=== PATIENT | female | born 1975 | race Caucasian/White ===

== ENCOUNTER 2020-12-25 09:28 | Outpatient (CLI) | payer OTHER, SELFPAY ==
--- NOTE | ~2020-12-25 | MM_ITS ---
EXAMINATION: MM scrn rose implant BI w valarie HISTORY: Screening mammogram TECHNIQUE: Craniocaudal and mediolateral oblique 3-D tomosynthesis images with implant displacement a nd synthetic 2-D images were generated. Craniocaudal and mediolateral oblique views of the breasts wi thout implant displacement were obtained using full field digital mammography. CAD analysis was submi tted and interpreted. COMPARISON: 04/09/2019 and 05/02/2017 bilateral implant digital screening mammogram examinations BREAST PARENCHYMAL COMPOSITION: There are scattered areas of fibroglandular density. FINDINGS: Status post bilateral augmentation mammoplasty. There is no evidence of suspicious mass, ca lcification, or architectural distortion to suggest malignancy in either breast. There has been no canas spicious interval change. IMPRESSION: 1. No mammographic evidence of malignancy. 2. Recommend routine screening mammography in one year. BI-RADS Category 1: Negative Reviewed, dictated and finalized at location A.
== END 2020-12-25 09:29 | disposition home or self-care (01) ==
LOC: ANHIMG 09:31
PROVIDERS: Visit Provider Advanced Practice Midwife
DX: Z12.31 Encounter for screening mammogram for malignant neoplasm of breast (principal)
CPT/HCPCS: 77063; 77067

== ENCOUNTER 2021-12-31 16:27 | Outpatient (CLI) | payer OTHER, SELFPAY ==
--- NOTE | ~2021-12-31 | MM_ITS ---
EXAMINATION: MM scrn rose implant BI w valarie HISTORY: Screening mammogram TECHNIQUE: Craniocaudal and mediolateral oblique 3-D tomosynthesis images with implant displacement a nd synthetic 2-D images were generated. Craniocaudal and mediolateral oblique views of the breasts wi thout implant displacement were obtained using full field digital mammography. CAD analysis was submi tted and interpreted. COMPARISON: 12/25/2020, 04/09/2019, 05/02/2017 bilateral implant screening mammogram examinations BREAST PARENCHYMAL COMPOSITION: The breasts are heterogeneously dense, which may obscure small masses . FINDINGS: Status post bilateral augmentation mammoplasty. There is no evidence of suspicious mass, ca lcification, or architectural distortion to suggest malignancy in either breast. There has been no canas spicious interval change. IMPRESSION: 1. No mammographic evidence of malignancy. 2. Recommend routine screening mammography in one year. BI-RADS Category 1: Negative Reviewed, dictated and finalized at location A.
== END 2021-12-31 16:28 | disposition home or self-care (01) ==
DX: Z12.31 Encounter for screening mammogram for malignant neoplasm of breast (principal)
CPT/HCPCS: 77063; 77067

== ENCOUNTER 2022-02-19 12:29 | Outpatient (CLI) | payer OTHER, SELFPAY ==
--- NOTE | 2022-02-19 | ECHO_ITS ---
Patient Info Name: Yessi Sexton Age: 46 years : 1975 Gender: Female Ht: 69 in Wt: 180 lbs BSA: 2.01 m2 HR: 98 bpm BP: 125 / 85 mmHg Heart Rhythm: Atrial Flutter Technical Quality: Fair Exam Date: 02/19/2022 1:02 PM Exam Location: [facility] Patient Status: Outpatient Admit Date: 02/19/2022 Staff Ordering Physician: Carey Mora MD Reading Coach: Mena Wayne RDCS Attending Provider: Carey Mora MD Referring Physician: Morgan JUAREZ; Exam Type: CA echo doppler color flow Study Info Indications R00.2 - Palpitations Complete two-dimensional, color flow and Doppler transthoracic echocardiogram is performed. Summary 1. Complete two-dimensional, color flow and Doppler transthoracic echocardiogram is performed. 2. Left ventricular chamber dimension is normal. 3. Left ventricular systolic function is normal, estimated at 50-55%. 4. Mild biatrial dilation. 5. Trivial aortic and mitral regurgitation. 6. Atrial flutter. Left Ventricle Left ventricular chamber dimension is normal. Left ventricular systolic function is normal, estimated at 50-55%. The left ventricular diastolic function is indeterminate. Right Ventricle Right ventricular chamber dimension is normal. Left Atria Left atrial chamber dimension is mildly enlarged. Right Atria Right atrial chamber dimension is mildly enlarged. Aortic Valve The aortic valve is normal. There is trace aortic valve regurgitation. Pulmonic Valve The pulmonic valve is normal. Mitral Valve The mitral valve has normal leaflets. There is trace mitral valve regurgitation. Tricuspid Valve The tricuspid valve leaflets are normal. Pericardium/Pleural The pericardium appears normal. Aorta The aortic root size at the sinus of Valsalva is normal. Left Ventricular Outflow Tract Name Value Normal LVOT 2D LVOT Diameter 1.9 cm LVOT Doppler LVOT Peak Gradient 3 mmHg LVOT Mean Gradient 2 mmHg LVOT VTI 21 cm LVOT VTI/AV VTI Ratio 0.8 LVOT Stroke Volume 61 ml LVOT CO 4.7 l/min LVOT CI 2.4 l/min/m2 Pulmonic Valve Name Value Normal RVOT Doppler RVOT Peak Gradient 2 mmHg PV Doppler PV Peak Gradient 6 mmHg Mitral Valve Name Value Normal MV Doppler MV Decel [place] 790 cm/s2
[2022-02-19 14:10] LABS: Basophils Percent Auto 0.4 % (0.2-1.2); Eosinophils Absolute Auto 0.1 K/mm3 (0-0.3); Eosinophils Percent Auto 0.7 % (0-4.4); Hematocrit 40.3 % (37.0-47.0); Hemoglobin 13.1 g/dL (12.0-15.0); Immature Granulocyte Absolute 0.02 K/mm3 (0.00-0.031); Immature Granulocyte Percent A 0.3 % (0-0.5); Lymphocytes Percent Auto 25.3 % (18.3-44.2); Mean Corpuscular HGB Conc 32.5 g/dl (32-36); Mean Corpuscular Hemoglobin 29.8 pg (26-34); Mean Corpuscular Volume 91.8 fl (80-100); Mean Platelet Volume 10.5 fl (7.4-10.4); Monocytes Absolute Auto 0.4 K/mm3 (0.1-0.6); Monocytes Percent Auto 5.7 % (2.6-8.5); Neutrophils Absolute Auto 5.1 K/mm3 (1.3-6.7); Neutrophils Percent Auto 67.6 % (45.5-73.1); Platelet Count Result 154 k/mm3 (150-375); Red Blood Count 4.39 M/mm3 (4.2-5.4); Red Cell Distribution Width 13.1 % (11.5-14.5); White Blood Count 7.5 K/mm3 (4.5-10.0)
[2022-02-19 14:21] LABS: Alanine Aminotransferase 16 U/L (6-35); Albumin Level 4.6 g/dL (3.5-5.1); Alkaline Phosphatase 59 U/L (38-126); Anion Gap 5 mmol/L (8-16); Aspartate Amino Transferase 24 U/L (14-36); Bilirubin,Total 0.8 mg/dL (0.2-1.3); Blood Urea Nitrogen 18 mg/dL (7-17); Calcium 8.7 mg/dL (8.4-10.2); Carbon Dioxide 29 mmol/L (22-30); Chloride 105 mmol/L (98-107); Estimated Glomerular Filt Rate > 60; Glucose 96 mg/dL (65-110); Potassium 4.1 mmol/L (3.4-5.0); Sodium 139 mmol/L (137-145)
--- NOTE | 2022-02-23 14:32 | WPDHOLTEREM ---
Holter/Event Monitor Holter/Event Monitor Date of procedure: 02/23/22 Holter/Event Procedure: 48 Hr Holter Monitor Diagnosis: Palpitations Indications: Palpitations Image/Tracing Quality: Good Finding: Patient was monitored for 47 hours 59 minutes. Underlying atrial flutter/fibrillation with heart rate variability between 42 and 160 beats per minute average heart rate 85 beats per minute. Low frequency ventricular ectopy totaling 84 beats. This consisted of 10 couplets and the rest of which were isolated ventricular contractions. Patient events reviewed recorded. Heart racing at 1:55 a.m. correlated to atrial flutter with a heart rate of 65 beats per minute. Two other episodes of heart pounding in mildly speeding up did correlate to atrial flutter with rapid ventricular response No significant pauses Conclusion: Underlying atrial flutter with average heart rate of 85 beats per minute Symptom events correlate atrial flutter and on 2 occasions atrial flutter with rapid ventricular response Low frequency ventricular ectopy
== END 2022-02-19 12:30 | disposition home or self-care (01) ==
PROVIDERS: Visit Provider Internal Medicine
DX: R00.2 Palpitations (principal); Z87.74 Personal history of (corrected) congenital malformations of heart and circulatory system; I48.92 Unspecified atrial flutter
CPT/HCPCS: 36415; 80053; 83735; 84443; 85025; 93225; 93226; 93306

== ENCOUNTER 2023-04-06 07:48 | Outpatient (CLI) | payer OTHER, SELFPAY ==
--- NOTE | ~2023-04-06 | MM_ITS ---
EXAMINATION: MM scrn rose implant BI w valarie HISTORY: Screening mammogram TECHNIQUE: Craniocaudal and mediolateral oblique 3-D tomosynthesis images with implant displacement a nd synthetic 2-D images were generated. Craniocaudal and mediolateral oblique views of the breasts wi thout implant displacement were obtained using full field digital mammography. CAD analysis was submi tted and interpreted. COMPARISON: 12/31/2021, 12/25/2020, 04/09/2019 bilateral implant screening mammogram examinations BREAST PARENCHYMAL COMPOSITION: The breasts are heterogeneously dense, which may obscure small masses . FINDINGS: Status post bilateral augmentation mammoplasty. There is no evidence of suspicious mass, ca lcification, or architectural distortion to suggest malignancy in either breast. There has been no canas spicious interval change. IMPRESSION: 1. No mammographic evidence of malignancy. 2. Recommend routine screening mammography in one year. BI-RADS Category 1: Negative Reviewed, dictated and finalized at location A.
== END 2023-04-06 07:49 | disposition home or self-care (01) ==
LOC: ANHIMG 07:51
PROVIDERS: PCP Internal Medicine; Visit Provider Registered Nurse
DX: Z12.31 Encounter for screening mammogram for malignant neoplasm of breast (principal)
CPT/HCPCS: 77063; 77067

== ENCOUNTER 2024-10-05 02:14 | Day surgery (SDC) | payer OTHER, SELFPAY ==
--- NOTE | 2024-08-29 16:23 | PC.NURSE ---
Report to the Outpatient Waiting Room, entrance under the green pavilion located off [facility], at time ___0600____ on date __[id number] . Planned Procedure Time: 729___.? Time changes happen often and if your time is changed the preop area will call you the afternoon before. - You and your visitor will be asked to self-screen and do not enter if you have any COVID symptoms. Please call surgeon if you need to reschedule. - A mask is optional within the hospital at this time. Patients may have clear liquids (water, carbonated beverages, clear teas, apple juice) until 3 hours prior to surgery with a maximum of 20 ounces. STOP AT 0430. - No food from midnight until time of surgery and no smoking. This includes no chewing gum, candy or mints. -- Take only the following medications with a SIP of water on the morning of surgery: N/A DO NOT STOP ANY OF YOUR OTHER PRESCRIPTION MEDICATIONS PRIOR TO SURGERY EXCEPT THE FOLLOWING Medications to discontinue per physician N/A Please no make-up, nail icelandic, hairspray, perfume, deodorant, or body powder the day of surgery.? No jewelry (including any body piercings) or valuables the day of surgery, leave them at home.? Please take a shower or bath the night before, or the morning of, surgery with an antibacterial soap.? Wear comfortable, loose fitting clothing.? - Jewelry must be removed prior to entering the operating room.? Rings and piercings that are not removed may be cut off. - The hospital will not accept responsibility for valuables.? - Please leave all valuables, including medications, at home the day of surgery. If you are going home after surgery, a licensed food service driver must drive you home.? - NO public transportation without another adult if you receive anesthesia. - We recommend that an adult stay with you for 24 hours following discharge. - We also recommend that you do not drive, make important decision, drink alcoholic beverages, or take any drugs that were not prescribed by your health care provider for at least 24 hours after your discharge time. Hold all vitamins and supplements for 3 days per anesthesiologist. N/A Follow any additional instructions given to you from your surgeon. Telephone instructions given to _PATIENT (TYRONE) and asked if any additional questions and then verbalized understanding. Patient advised to call surgeon office or pre surgery nurse liaison [phone] if any additional questions.
--- NOTE | 2024-09-28 11:27 | PC.NURSE ---
Report to the Outpatient Waiting Room, entrance under the green pavilion located off [facility], at time _0700_ on date _[id number]_. Planned Procedure Time: _0900_.? Time changes happen often and if your time is changed the preop area will call you the afternoon before. - You and your visitor will be asked to self-screen and do not enter if you have any COVID symptoms. Please call surgeon if you need to reschedule. - A mask is optional within the hospital at this time. Patients may have clear liquids (water, carbonated beverages, clear teas, apple juice) until 3 hours prior to surgery with a maximum of 20 ounces. - No food from midnight until time of surgery and no smoking, or chewing tobacco (or any form of nicotine). No chewing gum, candy or mints. Take only the following medications with a SIP of water on the morning of surgery: ____None____ DO NOT STOP ANY OF YOUR OTHER PRESCRIPTION MEDICATIONS PRIOR TO SURGERY EXCEPT THE FOLLOWING Hold all vitamins and supplements for 3 days per anesthesiologist. Medications to discontinue per physician Date to take last dose Please no make-up, nail welsh, hairspray, perfume, deodorant, or body powder the day of surgery.? No jewelry (including any body piercings) or valuables the day of surgery, leave them at home.? Please take a shower or bath the night before, or the morning of, surgery with an antibacterial soap.? Wear comfortable, loose fitting clothing.? - Jewelry must be removed prior to entering the operating room.? Rings and piercings that are not removed may be cut off. - The hospital will not accept responsibility for valuables.? - Please leave all valuables, including medications, at home the day of surgery. If you are going home after surgery, a licensed wheelchair van driver must drive you home.? - NO public transportation without another adult if you receive anesthesia. - We recommend that an adult stay with you for 24 hours following discharge. - We also recommend that you do not drive, make important decision, drink alcoholic beverages, or take any drugs that were not prescribed by your health care provider for at least 24 hours after your discharge time. Follow any additional instructions given to you from your surgeon. Telephone instructions given to __Heather___and asked if any additional questions and then verbalized understanding. Patient advised to call surgeon office or pre surgery nurse liaison [phone] if any additional questions.
[2024-09-28 15:28] VITALS: BMI 29.5
--- NOTE | 2024-10-04 12:59 | WPDANESEPPF ---
Anes - Initial Pre Proc Eval Procedure: Operation Date: 10/05/24 09:00 Proposed Procedures p Hysteroscopy Possible Dilation and Curettage with Removal Intrauterine Device, Pepper Endometrial Ablation, Removal of Any Possible Endometrial Lesions if Necessary, Bilateral Laparoscopic Salpingectomy - Miah Cruz MD Date/Time: 10/04/24 12:59 Surgeon: iMah Cruz MD Pre Op Diagnosis: menorrhagia, sterilization Patient Data Age: 48 Gender: F Height: 1.75 m Weight: 90.9 kg Allergies Allergy/AdvReac Type Severity Reaction Status Date / Time No Known Allergies Allergy Verified 09/28/24 11:40 Home Medications ?Medication ?Instructions ?Recorded ?Confirmed ?Type levonorgestrel (Mirena) 1 device intrauterine ONCE 01/11/23 09/28/24 History Patient hx anesthesia problems: none Family hx anesthesia problems: none Results Review: All pre-operative results and documents have been reviewed as part of the pre-operative evaluation. [facility] Past Medical History Medical History (Updated 10/04/24 @ 12:59 by Jimmie Rodriguez DO) PAF (paroxysmal atrial fibrillation) History of 1 Surgical History Surgical History (Updated 10/04/24 @ 12:59 by Jimmie Rodriguez DO) History of cardiac radiofrequency ablation [place] teeth removed History of cardiac radiofrequency ablation History of open heart surgery History of breast augmentation History of delivery x 3 Family History Family History Father Cancer unsure if prostate or colon Depression Social History Social History Smoking status: Never smoker Second hand tobacco smoke exposure: No Alcohol intake: current Alcohol use details: rare, socially. less than 1/week Substance use: never Substance use type: does not use Lack of Transportation: No Lack of Food: Never True Current Housing: I Have Housing Concerned About Future Housing: No Difficulty Paying Gas/Electric Bills: No Difficulty Paying for Meds: No Currently Unemployed: No Education: Master's Degree or Higher Difficulty w/ Childcare or Family Care: No Living arrangements: with family Occupation/Education: occupation Gender identity (if verbalized by the patient): Female Sexual Orientation (if Verbalized by the Patient): Straight or Heterosexual Spiritual care concerns: No Agree to blood products: Yes Anes - Eval Final PreProcedure Day of Procedure 10/04/24 12:59 Patient weight: overweight Heart: regular rate and rhythm Lungs: clear to auscultation Airway: Mallampati scale class II Neurological: alert and oriented Last oral intake: >/= 8 hours ASA classification: III Emergent: no Anesthetic plan: proceed Anesthesia type and monitoring: general GIVS and standard monitoring Results Review: All pre-operative results and documents have been reviewed as part of the pre-operative evaluation. Informed Consent: The patient's anesthetic plan and its attendant risks and benefits were discussed with the patient/family/POA. Questions were solicited and answers provided to the satisfaction of the patient/family/POA.
[2024-10-05] VITALS (9 sets, daily range): BP systolic 118–145; BP diastolic 72–85; PULSE 60–88; RESP 14–110; TEMP 36.6–36.8; O2SAT 99–100
--- OUTSIDE RECORDS SUMMARY | 2024-10-05 02:16 | XMS_ITS | Clinical Summary ---
Author Organization [facility] Address [address] [place] [id number] Care Team Providers Care Agricultural Produce Packer Name Role Phone Unavailable Primary Care Provider Unavailabl e Social History Tobacco Use Types Packs/Day Years Used Date Smoking Tobacco: Never Assessed Comments Unknown Sex and Gender Information Value Date Recorded Sex Assigned at Not on file Legal Sex Female 7:31 PM CDT Gender Identity Not on file Sexual Orientation Not on file Plan of Treatment Health Maintenance Due Date Last Done Comments Cervical Cancer Screening Pa p Smear (Age 30 to 64) Every 3 Years 1975 Colorectal Cancer Screening Colonoscopy (10 Years) 1975 Annual Physical 12/20/1979 Hepatitis C 1994 DTaP, Tdap and Td Vaccines ( 1 - Tdap) 12/20/1995 Hepatitis B Vaccines (1 of 3 - 19+ 3-dose series) 12/20/1995 Cervical Cancer Screening Pa p with HPV Testing (Age 30 to 64) Every 5 Years 2006 Cervical Cancer Screening with HPV 2006 Mammogram Screening 2016 COVID-19 Vaccine (2023-2 5 season) 2024 Influenza Adult (#1) 2024 Meningococcal B Vaccine Aged Out No l onger eligible based on patient's age to complete this topic Meningococcal Vaccine Aged Out No vijaya fidelina eligible based on patient's age to complete this topic Pneumococcal Vaccine: Pediat rics (0 to 5 Years) and At-Risk Patients (6 to 64 Years) Aged Out No longer eligible b ased on patient's age to complete this topic RSV Immunizations Under 20 Months Aged Out No longer eligible based on patient's age to complete this topic
--- OUTSIDE RECORDS SUMMARY | 2024-10-05 02:16 | XMS_ITS | Referral Summary ---
Author Organization [facility] [employer] Address [address] [place] [id number] Care Team Providers Care Map Mounter Name Role Phone Unavailable Primary Care Provider Unavailabl e Source Comments [facility] [employer],non-owned Affiliates and Associated Physician Practices is amultiple site organization consisting of ambulatory clinics and hospital sitesin [place], [place], [place] and [place]. This disclosure is being madepursuant to the Care Everywhere program and may not contain all information available regarding this patient. Last updated 18.[facility] [employer] Allergies No known active allergies Active Problems Patient Care Coordination No te Formatting of this note migh t be different from the original. Echo Declined Sequential Screen Problem Noted Date Diagnosed Date Encounter for supervision of other normal pregna ncy 07/13/2013 Overview (06/08/2015): Advanced maternal age (AMA) in 013 Family history of ASD (atria l septal defect)-MOB-surgery 1979 07/13/2013 Social History Tobacco Use Types Packs/Day Years Used Date Smoking Tobacco: Never Assessed Sex and Gender Information Value Date Recorded Sex Assigned at Not on file Gender Identity Not on file Sexual Orientation Not on file Plan of Treatment Not on file
--- OUTSIDE RECORDS SUMMARY | 2024-10-05 02:16 | XMS_ITS | Referral Summary ---
Author Organization [facility] [address] Address [address] [place] [address] Care Team Providers Care Insurance Verifier Name Role Phone Carey Mora MD Primary Care Provider [phone] Allergies No known active allergies Medications levonorgestreL (MIRENA) IUD 02/04/2022 Active rivaroxaban (XARELTO) 20 mg tabletIndication s:atrial flutter Take 1 tablet (20 mg total) by mouth daily with dinner 30 tablet 6 02/03/2023 Active Active Problems Problem Noted Date Diagnosed Date Pre-procedure lab exam 03/23/2022 Overview (03/23/2022): Added automatically from request for surgery [id number] Atrial flutter 03/09/2022 Multigravida of advanced maternal age 0702/25/2016 Atrial septal defect 02/25/2016 Social History Tobacco Use Types Packs/Day Years Used Date Smoking Tobacco: Never Smokeless Tobacco: Never Tobacco Cessation:Counseling Given: Not Answered Personal Safety Answer Date Recorded Getting School Help Needed Not on file 05/17 Comments No Sex and Gender Information Value Date Recorded Sex Assigned at Not on file Legal Sex Female 11:51 AM DEWER Gender Identity Not on file Sexual Orientation Not on file Last Filed Vital Signs Vital Sign Reading Time Taken Comments Blood Pressure 137/84 06/02/2023 8:34 AM CDT Pulse 79 06/02/2023 8:34 AM CDT Temperature 36.8 C (98.2 F) 04/29/2023 9:12 AM CDT Respiratory Rate 16 04/29/2023 10:55 AM CDT Oxygen Saturation 99% 06/02/2023 8:34 AM CDT Inhaled Oxygen Concentration - - Weight 90.3 kg (199 lb) 06/02/2023 8:34 AM CDT Height 175.3 cm (5' 9 ) 06/02/2023 8:34 AM CDT Body Mass Index 29.39 06/02/2023 8:34 AM CDT Plan of Treatment Not on file Medical Devices Implanted Type Area Forest Ecology Professor Device Identifier Shelf Expiration Date Model / Serial / Lot [employer] Vascade Mvp 6-12fr Venous Closure [id number] - [id number] Implanted:Qty: 1 on 04/29/2023 by Magen Mckeon MD at [facility] [employer] 01/04/2025 [id number] / / [id number] [employer] Vascade Mvp 6-12fr Venous Closure [id number] - [id number] Implanted:Qty: 1 on 04/29/2023 by Magen Mckeon MD at [facility] [employer] 01/04/2025 [id number] / / [id number] [employer] Device Vascular Closure Femoral Artery Bioabsorbable Dual Method Vascade 6-7fr Collagen [id number] - [id number] Implanted:Qty: 1 on 04/29/2023 by Magen Mckeon MD at [facility] [employer] 11/08/2024 [id number] / / [id number] Insurance [facility] CHOICE PLUS [facility] CHOICE PLUS [facility] CHOICE PLUS Care Teams Insurance Verifier Relationship Specialty Start Date End Date Carey Mora MD [address] [place] [address] PCP - General Internal Medicine 03/01/22
--- OUTSIDE RECORDS SUMMARY | 2024-10-05 02:16 | XMS_ITS | Patient Health Summary ---
Author Organization [facility] Address [address] [place] [address] Care Team Providers Care Engine Turner Name Role Phone Unavailable Primary Care Provider Unavailabl e Note from [facility],non-owned Affiliates and Associated Physician Practices is amultiple site organization consisting of ambulatory clinics and hospital sitesin [place], [place], [place] and [place]. This disclosure is being madepursuant to the Care Everywhere program and may not contain all information available regarding this patient. Last updated 18.[facility] Allergies No known active allergies Active Problems Problem Noted Date Diagnosed Date Encounter for supervision of other normal pregna ncy 07/13/2013 Advanced maternal age (AMA) in 013 Family history of ASD (atria l septal defect)-MOB-surgery 197807/13/2013 Social History Tobacco Use Types Packs/Day Years Used Date Smoking Tobacco: Never Assessed Sex and Gender Information Value Date Recorded Sex Assigned at Not on file Gender Identity Not on file Sexual Orientation Not on file Procedures * ECHO (Performed 08/03/2013) Performed for Supervision of other normal (HCC), Advanced maternal age (AMA) in , Family history of ASD (atrial septal defect)-MOB-surgery 1978 * SONOGRAM - COMPLETE(Performed 07/27/2013) Performed for Supervision of other normal (HCC), Advanced maternal age (AMA) in , Family history of ASD (atrial septal defect)-MOB-surgery 1978 Results * ECHO (08/03/2013 4:02 PM GARDE MANAGER) Anatomical Region Laterality Modality Other 08/03/2013 4:02 PM GARDE MANAGER Narrative 08/03/2013 4:43 PM GARDE MANAGER [facility] PHONE: FAX: Pat. Name: YESSI CABAN. No: [id number] Study Date: 08/03/2013 4:02pm , Age: 05 1975, 37 Pregnancies: 2, Para 1 LMP: Unknown GA by 1st: 26w6d GA Selected: 26w6d (From Known E) RODGER: 11/03/2013 Referring MD: KEYONNA PIERCE MD Technical Assistant: Awilda Sheehan RDMS ICD9: 648.53 CPT4: 13119, 72547, 83985 Hist/Ind: Maternal Heart Defect Echo Heart Rate: 134 bpm CLINICAL SUMMARY Study Number : 2 A clemons fetus is identified in cephalic presentation. The placenta is anterior. The amniotic fluid volume is within normal limits. No major malformations are seen. ECHO (assisted with color flow doppler): The heart is of normal size. Normal 4 chamber heart was visualized with normal cardiac axis. Normal right ventricular outflow tracts. Normal left ventricular outflow tracts. Normal venous returns Normal aortic arch Normal ductal arch No pericardial effusion observed ANATOMY: There is no evidence of cardiomegaly. Right and left atria are symmetric and approximately equal in size. Right and left ventricles are symmetric and approximately equal in size. HEART RATE AND RHYTHM: heart rate is 134 bpm. Normal sinus rhythm. IMPRESSION: Single, live IUP at 26w6d Normal amniotic fluid volume. No major malformations are seen today within the limitations of ultrasound. Placental location: Anterior, with no evidence for placenta previa No anatomic abnormalities seen on echocardiogram RECOMMEND: Follow up ultrasound as clinically indicated. Thank you for allowing us the opportunity to care for your patient. Yonatan Golden MD <Electronic Signature> 08/03/2013 04:43pm Marlys Kirby MD [facility] ORDERABLES * SONOGRAM - COMPLETE (07/27/2013 12:31 PM GARDE MANAGER) Anatomical Region Laterality Modality Other 07/27/2013 12:3 1 PM GARDE MANAGER Narrative 07/27/2013 3:23 PM GARDE MANAGER [facility] PHONE: FAX: Pat. Name: YESSI CABAN Pat. No: [id number] Study Date: 07/27/2013 12:31pm , Age: 05 1975, 37 Pregnancies: 2, Para 1 LMP: Unknown GA by US: 26w2d GA Selected: 25w6d (From Known E) RODGER: 11/03/2013 Referring MD: KEYONNA PIERCE MD Technical Assistant: Luciana White RDMS Hist/Ind: Maternal Heart Defect Echo MEASUREMENTS & AGE GROWTH EVALUATION Measurement GA Range Srce %for GA Ratios ----- ---- ------- BPD 6.6 cm 26w5d (25w6l-10x7e) Hadl BPD 67% FL/BPD 0.74 (0.71 - 0.87) HC 23.5 cm 25w4d (10p9s-42c5h) Hadl HC 43% FL/AC 0.22 (0.20 - 0.24) AC 22.4 cm 26w5d (52u8m-07h0t) Hadl AC 69% HC/AC 1.05 (1.01 - 1.20) FL 4.9 cm 26w4d (58o5b-64b9y) Hadl FL 65% CI 0.82 (0.70 - 0.86) HL 4.4 cm 26w1d (77h7j-28l0v) Mateusz HL 54% GA for sonogram 26w2d (53o6r-01e7c) Weight Estimate: based on (HL,BPD,HC,AC,FL) Avg Weight: 954 gm (814-1093) Hadlock : 2lbs, 1oz Normal: 843 gm (559-1300) Barber Wt% 60% for 25w6d Amniotic Fluid Index: 07.5cm (Deepest Pocket) CLINICAL SUMMARY Study Number: 1 A clemons fetus is identified in cephalic presentation. The amniotic fluid volume is within normal limits. The placenta is anterior. Posterior accessory lobe is noted. No major malformations are seen. The patient was advised that ultrasound does not allow detection of all structural or chromosomal abnormalities. IMPRESSION: Single, live, IUP 25w6d, complicated by AMA (37 at delivery) and a maternal history of atrial septal defect repair Biometry is consistent with appropriate growth based on prior dating No structural abnormalities were detected on detailed anatomic survey RECOMMEND: Follow up in 1 week for a echo with Dr. Golden. Thank you for allowing us the opportunity to care for your patient. Marlys Kirby MD <Electronic Signature> 07/27/2013 03:21pm Marlys Kirby MD [facility] ORDERABLES
--- OUTSIDE RECORDS SUMMARY | 2024-10-05 02:16 | XMS_ITS | Clinical Summary ---
Author Organization [facility] [address] Address [address] [place] [address] Care Team Providers Care Machine Operator Hop Picker Name Role Phone Carey Mora MD Primary Care Provider [phone] Allergies No known active allergies Medications levonorgestreL (MIRENA) IUD 02/04/2022 Active rivaroxaban (XARELTO) 20 mg tabletIndication s:atrial flutter Take 1 tablet (20 mg total) by mouth daily with dinner 30 tablet 6 02/03/2023 Active Active Problems Problem Noted Date Diagnosed Date Pre-procedure lab exam 03/23/2022 Overview (03/23/2022): Added automatically from request for surgery [id number] Atrial flutter 03/09/2022 Multigravida of advanced maternal age 0702/25/2016 Atrial septal defect 02/25/2016 Surgical History Surgery Date Site/Laterality Comments SECTION 2010, 2013, 2016 HEART SURGERY ASD @ , surg when 3 yrs old BREAST SURGERY AUGMENTATION MAMMOPLASTY 07/01/2000 - 07/31/2000 Bilateral Medical History Medical History Date Comments Heart murmur Heart failure (HCC) Atrial flutter (HCC) PONV (postoperative nausea and vomiting) Motion sickness Family History Medical History Relation Name Comments Colon cancer Father No Known Problems Mother Relation Name Status Comments Father Alive Mother Alive Social History Tobacco Use Types Packs/Day Years Used Date Smoking Tobacco: Never Smokeless Tobacco: Never Tobacco Cessation:Counseling Given: Not Answered Personal Safety Answer Date Recorded Getting School Help Needed Not on file 05/17 Comments No Sex and Gender Information Value Date Recorded Sex Assigned at Not on file Legal Sex Female 11:51 AM EXHIBITION SPECIALIST Gender Identity Not on file Sexual Orientation Not on file Obstetrics History Last Filed Vital Signs Vital Sign Reading [...] 06/02/2023 8:34 AM CDT Plan of Treatment Health Maintenance Due Date Last Done Comments Breast Cancer Screening-Mammogram 1976 Cervical Cancer Screening 1975 Colon Cancer Screening-Colonoscopy 1976 Depression Screening 1976 Hepatitis C Screening 1976 Hepatitis B Screening 1994 Regular Well Visit/Exam 18-64 1994 Covid-19 Vaccine (2023-2 5 season) 2024 06/23/2021, 10/03/2020, 09/05/2020 Influenza Vaccine (#1) 2024 , 05/02/2016, 08/22/2013 DTaP/Tdap/Td Vaccine (3 - Td or Tdap) 05/02/2026 05/02/2016, 08/22/2013, 04/07/2007 Pneumococcal vaccine <65 Aged Out No longer eligible based on patient's age to complete this topic Medical Devices Implanted Type Area Roof Tiler Device Identifier Shelf Expiration Date Model / Serial / Lot [employer] Vascade Mvp 6-12fr Venous Closure [id number] - [id number] Implanted:Qty: 1 on 04/29/2023 by Magen Mckeon MD at [facility] Collagen [employer] 01/04/2025 [id number] / / [id number] [employer] Vascade Mvp 6-12fr Venous Closure [id number] - [id number] Implanted:Qty: 1 on 04/29/2023 by Magen Mckeon MD at [facility] [employer] 01/04/2025 [id number] / / [id number] [employer] Device Vascular Closure Femoral Artery Bioabsorbable Dual Method Vascade 6-7fr Collagen [id number] - [id number] Implanted:Qty: 1 on 04/29/2023 by Magen Mckeon MD at [facility] [employer] 11/08/2024 [id number] / / [id number] Insurance [facility] CHOICE PLUS [facility] CHOICE PLUS [facility] CHOICE PLUS Care Teams Machine Operator Hop Picker Relationship Specialty Start Date End Date Carey Mora MD [address] [place] [address] PCP - General Internal Medicine 03/01/22
--- OUTSIDE RECORDS SUMMARY | 2024-10-05 02:16 | XMS_ITS | Clinical Summary ---
Author Organization [facility] Address [address] [place] [address] Care Team Providers Care Provider Relations Representative Name Role Phone Unavailable Primary Care Provider Unavailabl e Source Comments [facility],non-owned Affiliates and Associated Physician Practices is amultiple site organization consisting of ambulatory clinics and hospital sitesin [place], [place], [place] and [place]. This disclosure is being madepursuant to the Care Everywhere program and may not contain all information available regarding this patient. Last updated 18.[facility] Allergies No known active allergies Active Problems Patient Care Coordination No te Formatting of this note migh t be different from the original. Echo Declined Sequential Screen Problem Noted Date Diagnosed Date Encounter for supervision of other normal pregna ncy 07/13/2013 Overview (06/08/2015): Advanced maternal age (AMA) in 013 Family history of ASD (atria l septal defect)-MOB-surgery 1979 07/13/2013 Family History Medical History Relation Name Comments Cancer Father Colon Relation Name Status Comments Father Social History Tobacco Use Types Packs/Day Years Used Date Smoking Tobacco: Never Assessed Sex and Gender Information Value Date Recorded Sex Assigned at Not on file Gender Identity Not on file Sexual Orientation Not on file Plan of Treatment Health Maintenance Due Date Last Done Comments COLOGUARD (AGES 45-75) - COL ON CA SCREENING 1976 COLON MONITORING 1976 COLONOSCOPY - COLON CA SCREENING 1976 CT COLONOGRAPHY - COLON CA SCREENING 1976 Colorectal Cancer Screening 1976 FIT - COLON CA SCREENING 1976 FLEX SIG - COLON CA SCREENING 1976 LIPID TESTING 1976 MAMMOGRAM 1976 PAP SMEAR 1976 HIV SCREENING 12/20/1991 HEPATITIS C SCREENING 12/15/1994 DTAP/TDAP/TD VACCINES (1 - Tdap) 12/20/1995 HEPATITIS B VACCINE (1 of 3 - 19+ 3-dose series) 12/20/1995 COVID-19 VACCINE (1 - 2023-2 5 season) 2024 INFLUENZA VACCINE (#1) 2024 DEPRESSION SCREENING 08/01/2024 ZOSTER VACCINE (1 of 2) 2026 HIB VACCINE Aged Out No longer eligi ble based on patient's age to complete this topic HPV VACCINE Aged Out No longer eligi ble based on patient's age to complete this topic MENINGOCOCCAL (Group B) VACCINE Aged Out No longer eligible based on patient's age to complete this topic MENINGOCOCCAL VACCINE Aged Out No vijaya fidelina eligible based on patient's age to complete this topic PNEUMOCOCCAL VACCINE Aged Out No long er eligible based on patient's age to complete this topic
--- NOTE | 2024-10-05 06:03 | ECG_ITS ---
Test Date: 2024-10-05 08:12:20 Measurements Intervals [place] Rate: 69 P: 53 VT: 136 QRS: 15 QRSD: 110 T: 27 QT: 427 QTc: 459 Interpretive Statements SINUS RHYTHM NONSPECIFIC ST & T-WAVE ABNORMALITY No previous ECG available for comparison Electronically Signed On 10-05-2024 16:31:29 MACHINE MAINTENANCE SERVICER by Armando Prieto M.D.
[2024-10-05] MEDS: LACTATED RINGERS 1,000 ML 30 ML IV CONT ×2 (07:45→10:38)
--- NOTE | 2024-10-05 07:51 | PM.IMHP ---
H&P: HPI History of Present Illness Date/Time: 10/05/24 07:51 Chief Complaint: Retained IUD, satisfied parity Narrative: Patient with h/o Mirena IUD which she was using for contraception and menstrual control. Unable to remove in office, ultrasound in office showed IUD in upper cavity. She was recommended for hysteroscopic removal of IUD. She was given option of endometrial ablation at the same time, due to history of menorrhagia. Endometrial biopsy was scant. She has satisfied parity. She was given option for salpingectomy for permanent sterilization and informed of possible benefit of decreased future risk of ovarian cancer and opted for laparoscopic bilateral salpingectomy for sterilization. She has been counseled regarding risk benefits alternatives to each option and wants to proceed with removal of IUD hysteroscopicly with ablation and laparoscopic bilateral salpingectomy. She had recent cardiac evaluation prior to procedure due to h.o cardiac ablation. Review of Systems Review of Systems: All systems reviewed & are unremarkable except as noted in HPI and below Cardiovascular: Cardiovascular: Reports no additional cardiovascular complaints, Denies chest pain and Denies dyspnea Respiratory: Respiratory: Reports no additional respiratory complaints and Denies dyspnea Gastrointestinal: Gastrointestinal: Reports abdominal pain, Denies change in bowel habits, Denies diarrhea, Denies nausea and Denies vomiting Genitourinary: Genitourinary: Reports pelvic pain Musculoskeletal: Musculoskeletal: Reports back pain Integumentary/Breasts: Skin/Breast: Reports system reviewed and no additional complaints, except as docu Neurologic: Reports system reviewed and no additional complaints, except as documented PMFSH Past Medical History Medical History PAF (paroxysmal atrial fibrillation) History of 1 Surgical History Surgical History History of cardiac radiofrequency ablation [place] teeth removed History of cardiac radiofrequency ablation History of open heart surgery History of breast augmentation History of delivery x 3 Family History Family History Father Cancer unsure if prostate or colon Depression Social History Social History Smoking status: Never smoker Second hand tobacco smoke exposure: No Alcohol intake: current Alcohol use details: rare, socially. less than 1/week Substance use: never Substance use type: does not use Lack of Transportation: No Lack of Food: Never True Current Housing: I Have Housing Concerned About Future Housing: No Difficulty Paying Gas/Electric Bills: No Difficulty Paying for Meds: No Currently Unemployed: No Education: Master's Degree or Higher Difficulty w/ Childcare or Family Care: No Living arrangements: with family Occupation/Education: occupation Gender identity (if verbalized by the patient): Female Sexual Orientation (if Verbalized by the Patient): Straight or Heterosexual Spiritual care concerns: No Agree to blood products: Yes Meds Home Medications and Allergies Home Medications ?Medication ?Instructions ?Recorded ?Confirmed ?Type levonorgestrel (Mirena) 1 device intrauterine ONCE 01/11/23 10/05/24 History Allergies Allergy/AdvReac Type Severity Reaction Status Date / Time No Known Allergies Allergy Verified 09/28/24 11:40 Exam Const: Orientation/consciousness: oriented to person and oriented to place HENMT: Head: normal to inspection Eyes: General: appearance normal, both eyes and all related structures Resp: Effort & Inspection: normal respiratory effort Auscultation: clear to auscultation bilaterally Cardio: Rate: regular rate Rhythm: regular rhythm GI: Inspection: normal to inspection GI Palp: No Rebound tenderness present Neuro: General: oriented to person and oriented to place Cognition (Neuro): normal cognition Extrem: General: normal to inspection Psych: Appearance: grossly normal and well kempt Assessment and Plan Assessment and plan (1) History of menorrhagia: Code(s): Z87.42 - Personal history of other diseases of the female genital tract Status: Acute Assessment and Plan: Will proceed with endometrial ablation. (2) Request for sterilization: Code(s): Z30.2 - Encounter for sterilization Status: Acute Assessment and Plan: Will proceed with laparoscopic bilateral salpingectomy. (3) Retained intrauterine contraceptive device (IUD): Code(s): T83.39XA - Other mechanical complication of intrauterine contraceptive device, initial encounter Status: Acute Assessment and Plan: Will perform removal of IUD. Declines reinsertion. Elects for ablation.
[2024-10-05] MEDS: KETOROLAC 15 MG/ML VIAL (*BKC) IV PUSH (08:11)
[2024-10-05] MEDS: ACETAMINOPHEN 500 MG TABLET 1000 MG PO (08:11)
--- NOTE | 2024-10-05 08:49 | WPDHPUPDATE1 ---
History and Physical Update Update Date/Time: 10/05/24 08:49 History and Physical has been reviewed, including an updated exam of the patient. There are NO changes in the patient's condition. Risks, benefits, and alternatives have been discussed and questions answered. Patient agrees to proceed with procedure.
[2024-10-05 08:52] LABS: BEDSIDEPREGUCG Negative (Negative)
[2024-10-05] MEDS: ceFAZolin 2 GM/D5W 50 ML 2 GM/50 ML BAG IVPB (09:14)
[2024-10-05] MEDS: BUPivacaine HCL 0.5% PF 30 ML VIAL INFILTRATE (09:45)
--- NOTE | 2024-10-05 10:26 | W.PM.PROC2 ---
Procedure Note - Detailed Date of Procedure 10/05/24 Pre-op Diagnosis retained IUD, h/o menorrhagia, request permanent sterilization Post-op Diagnosis Same Procedure Performed Laparoscopic bilateral salpingectomy Right ovarian cystectomy Lysis of adhesions Hysteroscopic removal of retained IUD. Surgeon Miah Cruz MD Stock Drier Tender J. Anesthesia General Indications Patient with retained IUD unable to remove in office with sound guidance. Satisfied parity and request sterilization. Findings The anterior uterus densely adhesed to lower abdominal wall, adhesions of omenatal tissue to lower mid abdomen, large ovarian cyst on right, small ovarian cyst on left Description of Procedure After informed consent was obtained patient was taken to the operating room and general endotracheal anesthesia was administered. She was placed in low lithotomy need prep prepped sterile fashion. Attention was turned to the vagina. Speculum placed and Cervix retropubic, inserted single-tooth tenaculum placed on anterior lip of the cervix. Daggett uterine manipulator placed into the cervical canal. The speculum was removed. Attention was then turned to the abdomen. With sterile gloves a vertical incision was made at the umbilicus and a Veress needle was inserted into the abdomen confirmation into the abdomen obtained with free flow of fluid and normal peritoneal pressures. A pneumoperitoneum of 15 mm per mercury was obtained. The 5 mm port was inserted under laparoscopic visualization. Patient was placed in Trendelenburg position. Attention was turned to the left side of the abdomen and a 5 mm port was inserted under laparoscopic visualization. The pelvic organs were visualized. Attention was turned to the right side of the abdomen and another 5 mm port was inserted under laparoscopic visualization. Dense adhesions of the omentum mid lower abdomen was lysed with ligature. At this time the whole uterus was visualized and the whole anterior uterus was densely adhesed to lower mid abdomen. The adnexa was visualized. Large cyst on right. This cyst was incised and fluid drained blood tinged, the edge of the entrance into cyst was cauterized hemostasis noted. The right fallopian tube was then ligated with ligature and removed through port. Attention was then turned to the left fallopian tube which was grabbed at the distal end and cauterized from the mesial salpinx to proximal fallopian tube. The fallopian tube was removed through the 5 mm port. Hemostasis was noted at both sites. Patient was taken out of Trendelenburg position the pneumoperitoneum was released and the skin incisions were closed in a subcuticular fashion with 4 O Vicryl. Attention was turned to the vagina. Speculum was inserted. Single-tooth tenaculum placed on the anterior and posterior lip of the cervix. The os was stenotic. Os finders used and the cervical canal was entered. The sound difficult to pass.The hysteroscope was inserted into cervical canal. Using hydrodilation the scope was introduced further into cervical canal and uterine cavity visualized. The IUD string was visualized at upper cervical canal. The uterine cavity appeared narrowed superiorly and anterior. The IUD arms were folded at the narrow superior cavity. Using a hysteroscopy grasper the IUD strings were grasped and IUD was removed with the hysteroscope camera. Arms appears very folded. The whole IUD was intact. Mirena was not attempted due to the distortion and superior narrowing of the cavity. The cavity appeared normal nonproliferative, no lesions. The hysteroscope was removed. The single-tooth tenaculums were removed hemostasis was noted at the tenaculum site. Sponge count correct. The patient taken to recovery in stable condition. Estimated Blood Loss 10 Drains No Packing No Pathology Yes (right and left fallopian tubes) Complications No immediate complications Condition Stable Disposition Same day [facility] Billing Surgery - Charge Forward: Surgery Billing
== END 2024-10-05 13:15 | disposition home or self-care (01) ==
PROVIDERS: Anesthesiology; PCP Internal Medicine; Visit Provider Obstetrics & Gynecology
PROC: 0UDB8ZZ Extraction of Endometrium, Via Natural or Artificial Opening Endoscopic (ICD-10-PCS; CPT 58558; principal; 2024-10-05 09:00)
DX: Z30.2 Encounter for sterilization (principal); Z30.432 Encounter for removal of intrauterine contraceptive device; N83.202 Unspecified ovarian cyst, left side; N83.201 Unspecified ovarian cyst, right side; N73.6 Female pelvic peritoneal adhesions (postinfective); Z87.42 Personal history of other diseases of the female genital tract
CPT/HCPCS: 58579; 58662; 58661; 88302; 93005; A9270; J0690; J1100; J1885; J2003; J2250; J2405; J2704; J3010; J7120

== ENCOUNTER 2024-12-27 03:03 | Day surgery (SDC) | payer OTHER, SELFPAY ==
[2024-12-20 15:54] VITALS: BMI 29.6
--- OUTSIDE RECORDS SUMMARY | 2024-12-27 03:07 | XMS_ITS | Clinical Summary ---
Author Organization [facility] Address [address] [place] [address] Care Team Providers Care System Validation Engineer Name Role Phone Unavailable Primary Care Provider Unavailabl e Source Comments [facility],non-owned Affiliates and Associated Physician Practices is amultiple site organization consisting of ambulatory clinics and hospital sitesin [place], [place], [place] and [place]. This disclosure is being madepursuant to the Care Everywhere program and may not contain all information available regarding this patient. Last updated 18.[facility] Allergies No known active allergies Active Problems [...] Used Date Smoking Tobacco: Never Assessed Comments No Sex and Gender Information Value Date Recorded Sex Assigned at Not on file Legal Sex Female 9:42 AM CDT Gender Identity Not on file Sexual [...] VACCINE (1 - 2023-2 5 season) 2024 DEPRESSION SCREENING 08/01/2024 INFLUENZA VACCINE (Season Ended) 2025 ZOSTER VACCINE (1 of 2) 2026 HIB VACCINE Aged Out No longer eligi ble based on patient's age to complete this topic HPV VACCINE Aged Out No longer eligi ble based on patient's age to complete this topic MENINGOCOCCAL (Group B) VACC INE SHARED DECISION-MAKING Aged Out No longer eligibl e based on patient's age to complete this topic MENINGOCOCCAL GROUPS A/C/Y/W VACCINE Aged Out No longer eligible b ased on patient's age to complete this topic PNEUMOCOCCAL VACCINE Aged Out No long er eligible based on patient's age to complete this topic Insurance [facility] SELF PAY NO INSURANCE Member Subscriber Plan / Payer (Ef fective for All Dates) Name:Yessi Caban Member ID:Not on file Relation to Subscriber:Not on file Name:YESSI CABAN Subscriber ID:Not on file (Home) Address: [address] [place] [address] Payer ID:Not on file Group ID:Not on file Type:Self Pay Address: [place], [place]
--- OUTSIDE RECORDS SUMMARY | 2024-12-27 03:07 | XMS_ITS | Referral Summary ---
Author Organization [facility] [place] [address] Address [address] [place] [address] Care Team Providers Care Marine Surveyor Name Role Phone Carey Mora MD Primary Care Provider +1- [phone] Allergies No known active allergies Medications levonorgestreL (MIRENA) IUD 02/04/2022 Active rivaroxaban (XARELTO) 20 mg tabletIndication s:atrial flutter Take 1 tablet (20 mg total) by mouth daily with dinner 30 tablet 6 02/03/2023 Active Active Problems Problem Noted Date Diagnosed Date Pre-procedure lab exam 03/23/2022 Overview (03/23/2022): Added automatically from request for surgery [id number] Atrial flutter 03/09/2022 Multigravida of advanced maternal [...] on file 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 Gender Identity Not on file Sexual Orientation [...] 8:34 AM CDT Height 175.3 cm (5' 9) 06/02/2023 8:34 AM CDT Body Mass Index 29.39 06/02/2023 8:34 AM CDT Plan of Treatment Not on file Medical Devices Implanted Type Area Hog Killer Device Identifier Shelf Expiration Date Model / Serial / Lot [employer] Vascade Mvp 6-12fr Venous Closure [id number] - [id number] Implanted:Qty: 1 on 04/29/2023 by Magen Mckeon MD at [facility] [employer] 01/04/2025 800-612C-1 [id number] / / [id number] [employer] Vascade Mvp 6-12fr Venous Closure [id number] - [id number] Implanted:Qty: 1 on 04/29/2023 by Magen Mckeon MD at [facility] [employer] 01/04/2025 800-612C-1 [id number] / / [id number] [employer] Device Vascular Closure Femoral Artery Bioabsorbable Dual Method Vascade 6-7fr Collagen [id number] - [id number] Implanted:Qty: 1 on 04/29/2023 by Mgaen Mckeon MD at [facility] [employer] 11/08/2024 700-580I-0 [id number] / / [id number] 2A Insurance [facility] H[facility]/PPO Address: [address] [address] [place] [address] [facility] H[facility]/PPO Address: [address] [address] [place] [address] [facility] CHO[facility] H[facility]/PPO Address: [address] [address] [place] [address] Care Teams Marine Surveyor Relationship Specialty Start Date End Date Carey Mora MD [address] [place] [address] PCP - General Internal Medicine 03/01/22
--- OUTSIDE RECORDS SUMMARY | 2024-12-27 03:07 | XMS_ITS | Clinical Summary ---
Author Organization [facility] [place] [address] Address [address] [place] [address] Care Team Providers Care Return Clerk Name Role Phone Carey Mora MD Primary Care Provider +1- [phone] Allergies No known active allergies Medications levonorgestreL (MIRENA) IUD 02/04/2022 Active rivaroxaban (XARELTO) 20 mg tabletIndication s:atrial flutter Take 1 tablet (20 mg total) by mouth daily with dinner 30 tablet 6 02/03/2023 Active Active Problems Problem Noted Date Diagnosed Date Pre-procedure lab exam 03/23/2022 Overview (03/23/2022): Added automatically from request for surgery [id number] Atrial flutter 03/09/2022 Multigravida of advanced maternal [...] on file 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 Gender Identity Not on file Sexual Orientation [...] season) 2024 06/23/2021, 10/03/2020, 09/05/2020 Influenza Vaccine (Season Ended) 2025 06/23/2021, 05/02/2016, 08/22/2013 DTaP/Tdap/Td Vaccine (3 - Td or Tdap) 05/02/2026 05/02/2016, 08/22/2013, 04/07/2007 Pneumococcal vaccine <65 Aged Out No longer eligible based on patient's age to complete this topic Medical Devices Implanted Type Area Distribution Center Manager Device Identifier Shelf Expiration Date Model / Serial / Lot [employer] Vascade Mvp 6-12fr Venous Closure [id number] - [id number] Implanted:Qty: 1 on 04/29/2023 by Magen Mckeon MD at [facility] [employer] 01/04/2025 800-612C-1 [id number] / / [id number] [employer] Vascade Mvp 6-12fr Venous Closure [id number] - [id number] Implanted:Qty: 1 on 04/29/2023 by Magen Mckeon MD at [facility] [employer] [employer] 01/04/2025 800-612C-1 0U / / [id number] [employer] Device Vascular Closure Femoral Artery Bioabsorbable Dual Method Vascade 6-7fr Collagen [id number] - [id number] Implanted:Qty: 1 on 04/29/2023 by Magen Mckeon MD at [facility] [employer] 11/08/2024 700-580I-0 5U / / [id number] 2A Insurance [facility] CHOICE PL[facility] H[facility]/PPO Address[facility] [address] [place] [address] [facility] CHOICE PL[facility] H[facility]/PPO Address[facility] [address] [place] [address] [facility] CHOICE PLUS [facility] H[facility]/PPO Address: [id number] [place] [address] Care Teams Return Clerk Relationship Specialty Start Date End Date Carey Mora MD [address] [place] [address] PCP - General Internal Medicine 03/01/22
[2024-12-27 11:39] VITALS: BP 124/74; PULSE 66; RESP 19; TEMP 36.6; O2SAT 100; BMI 30.2
[2024-12-27] MEDS: LACTATED RINGERS 1,000 ML 150 ML IV CONT (11:54)
--- NOTE | 2024-12-27 12:27 | PM.IMHP ---
H&P: HPI History of Present Illness Date/Time: 12/27/24 12:27 Chief Complaint: Screening colonoscopy Narrative: This is the patient's first colonoscopy. There are no GI symptoms and there is no family history of colorectal cancer. Review of Systems Review of Systems: All systems reviewed & are unremarkable except as noted in HPI and below PMFSH Past Medical History Medical History PAF (paroxysmal atrial fibrillation) History of 1 Surgical History Surgical History History of bilateral salpingectomy History of cardiac radiofrequency ablation [place] teeth removed History of cardiac radiofrequency ablation History of open heart surgery History of breast augmentation History of delivery x 3 Family History Family History Father Cancer unsure if prostate or colon Depression Social History Social History Smoking status: Never smoker Second hand tobacco smoke exposure: No Alcohol intake: current Alcohol use details: rare, socially. less than 1/week Substance use: never Substance use type: does not use Lack of Transportation: No Lack of Food: Never True Current Housing: I Have Housing Concerned About Future Housing: No Difficulty Paying Gas/Electric Bills: No Difficulty Paying for Meds: No Currently Unemployed: No Education: Master's Degree or Higher Difficulty w/ Childcare or Family Care: No Living arrangements: with family Occupation/Education: occupation Gender identity (if verbalized by the patient): Female Sexual Orientation (if Verbalized by the Patient): Straight or Heterosexual Spiritual care concerns: No Agree to blood products: Yes Meds Home Medications and Allergies Home Medications ?Medication ?Instructions ?Recorded ?Confirmed ?Type No Home Medications 10/18/24 12/20/24 History Allergies Allergy/AdvReac Type Severity Reaction Status Date / Time No Known Allergies Allergy Verified 12/27/24 11:44 Vital Signs Vital Signs - 24 hr 12/27/24 11:39 Temperature 98 F Pulse Rate 66 Respiratory Rate 19 Blood Pressure 124/74 Pulse Oximetry 100 Oxygen Delivery Room Air Exam Const: General: cooperative and healthy appearing Resp: Effort & Inspection: normal respiratory effort and able to speak in complete sentences Auscultation: clear to auscultation bilaterally Cardio: Rate: regular rate Rhythm: regular rhythm GI: Inspection: normal to inspection GI Palp: No No hepatosplenomegaly present Auscultation: normal bowel sounds Rectal Exam: deferred Skin: General skin exam: normal color Psych: Appearance: grossly normal Mental Status: mental status grossly normal Assessment and Plan Assessment and plan (1) Colon cancer screening: Code(s): Z12.11 - Encounter for screening for malignant neoplasm of colon Status: Acute Assessment and Plan: The patient is deemed a good candidate for the procedure. Consent signed. Will proceed.
--- NOTE | 2024-12-27 12:29 | P.PNAN_ITS ---
Anes - Initial Pre Proc Eval Procedure: Operation Date: 12/27/24 13:00 Proposed Procedures p Screening Colonoscopy - Scooter Lei MD Date/Time: 12/27/24 12:29 Surgeon: Scooter Lei MD Pre Op Diagnosis: Screening Patient Data Age: 49 Gender: F Height: 1.75 m Weight: 93 kg Last Vital Signs Temp 98 F 12/27/24 11:39 Pulse 66 12/27/24 11:39 Resp 19 12/27/24 11:39 BP 124/74 12/27/24 11:39 Pulse Ox 100 12/27/24 11:39 O2 Del Method Room Air 12/27/24 11:39 Allergies Allergy/AdvReac Type Severity Reaction Status Date / Time No Known Allergies Allergy Verified 12/27/24 11:44 Home Medications ?Medication ?Instructions ?Recorded ?Confirmed ?Type No Home Medications 10/18/24 12/20/24 History Patient hx anesthesia problems: none Family hx anesthesia problems: none Results Review: All pre-operative results and documents have been reviewed as part of the pre- operative evaluation. [facility] Past Medical History Medical History PAF (paroxysmal atrial fibrillation) History of 1 Surgical History Surgical History History of bilateral salpingectomy History of cardiac radiofrequency ablation [place] teeth removed History of cardiac radiofrequency ablation History of open heart surgery History of breast augmentation History of delivery x 3 Family History Family History Father Cancer unsure if prostate or colon Depression Social History Social History Smoking status: Never smoker Second hand tobacco smoke exposure: No Alcohol intake: current Alcohol use details: rare, socially. less than 1/week Substance use: never Substance use type: does not use Lack of Transportation: No Lack of Food: Never True Current Housing: I Have Housing Concerned About Future Housing: No Difficulty Paying Gas/Electric Bills: No Difficulty Paying for Meds: No Currently Unemployed: No Education: Master's Degree or Higher Difficulty w/ Childcare or Family Care: No Living arrangements: with family Occupation/Education: occupation Gender identity (if verbalized by the patient): Female Sexual Orientation (if Verbalized by the Patient): Straight or Heterosexual Spiritual care concerns: No Agree to blood products: Yes Anes - Eval Final PreProcedure Day of Procedure 12/27/24 12:29 Patient weight: normal Heart: regular rate and rhythm Lungs: clear to auscultation Airway: Mallampati scale class II Neurological: alert and oriented Last oral intake: >/= 8 hours ASA classification: III Emergent: no Anesthetic plan: proceed Anesthesia type and monitoring: general GIVS and standard monitoring Results Review: All pre-operative results and documents have been reviewed as part of the pre- operative evaluation. Informed Consent: The patient's anesthetic plan and its attendant risks and benefits were discussed with the patient/family/POA. Questions were solicited and answers provided to the satisfaction of the patient/family/POA.
[2024-12-27 12:49] VITALS: BP 93/49; PULSE 56; RESP 19; O2SAT 100
[2024-12-27 12:59] VITALS: BP 117/70; PULSE 72; RESP 20; O2SAT 99
[2024-12-27 13:09] VITALS: BP 121/74; PULSE 63; RESP 20; O2SAT 99
== END 2024-12-27 13:19 | disposition home or self-care (01) ==
PROVIDERS: PCP Obstetrics & Gynecology; Referring Provider Nurse Practitioner Family; Visit Provider Internal Medicine Gastroenterology
PROC: 0DJD8ZZ Inspection of Lower Intestinal Tract, Via Natural or Artificial Opening Endoscopic (ICD-10-PCS; CPT 45378; principal; 2024-12-27 13:00)
DX: Z12.11 Encounter for screening for malignant neoplasm of colon (principal); K57.30 Diverticulosis of large intestine without perforation or abscess without bleeding
CPT/HCPCS: 45378; J2003; J2704; J7120

== ENCOUNTER 2025-07-03 09:20 | Outpatient (CLI) | payer OTHER, SELFPAY ==
--- NOTE | ~2025-07-03 | MM_ITS ---
EXAMINATION: MM screening rose BI w valarie HISTORY: Screening TECHNIQUE: Craniocaudal and mediolateral oblique 3-D tomosynthesis images were obtained and synthetic 2-D images were generated. CAD analysis was submitted and interpreted. COMPARISON: Comparison to multiple prior studies sequentially, with oldest reviewed study dated 05/02/2017. BREAST PARENCHYMAL COMPOSITION: Not dense: There are scattered areas of fibroglandular density. FINDINGS: There is no evidence of suspicious mass, calcification, or architectural distortion to suggest malignancy in either breast. There has been no suspicious interval change. IMPRESSION: 1. No mammographic evidence of malignancy. 2. Recommend routine screening mammography in one year. BI-RADS Category 1: Negative Reviewed, dictated and finalized at location I. O RETOUCHER
--- OUTSIDE RECORDS SUMMARY | 2025-07-03 10:10 | XMS_ITS | Clinical Summary ---
Author Organization [facility] [place] [address] Address [address] [place] [address] Care Team Providers Care Sparmaker Name Role Phone Carey Mora MD Primary Care Provider +1- [phone] Allergies No known active allergies Medications levonorgestreL (MIRENA) IUD 02/04/2022 Active rivaroxaban (XARELTO) 20 mg tabletIndication s:atrial flutter Take 1 tablet (20 mg total) by mouth daily with dinner 30 tablet 6 02/03/2023 Active Active Problems Problem Noted Date Diagnosed Date Pre-procedure lab exam 03/23/2022 Overview (03/23/2022): Added automatically from request for surgery [id number] Atrial flutter 03/09/2022 Multigravida of advanced maternal age 0702/25/2016 Atrial septal defect 02/25/2016 Surgical History Surgery Date Site/Laterality Comments SECTION 2010, 2013, 2016 HEART SURGERY ASD @ , surg when 3 yrs old BREAST SURGERY AUGMENTATION MAMMOPLASTY 07/01/2000 - 07/31/2000 Bilateral Medical History Medical History Date Comments Heart murmur Heart failure Atrial flutter (HCC) PONV (postoperative nausea and [...] on file 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 Gender Identity Not on file Sexual Orientation [...] Regular Well Visit/Exam 18-64 1994 Covid-19 Vaccine (2024-09 6 season) 2025 06/23/2021, 10/03/2020, 09/05/2020 Influenza Vaccine (#1) 2025 , 05/02/2016, 08/22/2013 DTaP/Tdap/Td Vaccine (3 - Td or Tdap) 05/02/2026 05/02/2016, 08/22/2013, 04/07/2007 Pneumococcal vaccine <65 Aged Out No longer eligible based on patient's age to complete this topic Medical Devices Implanted Type Area Team Psychologist Device Identifier Shelf Expiration Date Model / Serial / Lot [employer] Vascade Mvp 6-12fr Venous Closure [id number] - [id number] Implanted:Qty: 1 on 04/29/2023 by Magen Mckeon MD at [facility] [employer] 01/04/2025 800-612C-1 0U / / [id number] [employer] Vascade Mvp 6-12fr Venous Closure [id number] - [id number] Implanted:Qty: 1 on 04/29/2023 by Magen Mckeon MD at [facility] [employer] 01/04/2025 800-612C-1 0U / / [id number] [employer] Device Vascular Closure Femoral Artery Bioabsorbable Dual Method Vascade 6-7fr Collagen [id number] - [id number] Implanted:Qty: 1 on 04/29/2023 by Magen Mckeon MD at [facility] [employer] 11/08/2024 700-580I-0 5U / / [id number] 2A Insurance [facility] CHOICE PLUS [facility] CHOICE PLUS [id number] [facility] CHOICE PLUS Care Teams Sparmaker Relationship Specialty Start Date End Date Carey Mora MD PCP - General Internal Medicine 03/01/22
--- OUTSIDE RECORDS SUMMARY | 2025-07-03 10:10 | XMS_ITS | Clinical Summary ---
Author Organization [facility] Address [address] [place] [address] Care Team Providers Care Senior Sales Manager Name Role Phone Unavailable Primary Care Provider Unavailabl e Source Comments [facility],non-owned Affiliates and Associated Physician Practices is amultiple site organization consisting of ambulatory clinics and hospital sitesin [place], [place], [place] and [place]. This disclosure is being madepursuant to the Care Everywhere program and may not contain all information available regarding this patient. Last updated 18.[facility] Allergies No known active allergies Active Problems [...] SCREENING 1976 LIPID TESTING 1976 MAMMOGRAM 1976 HIV SCREENING 12/20/1991 HEPATITIS C SCREENING 12/15/1994 DTAP/TDAP/TD VACCINES (1 - Tdap) 12/20/1995 HEPATITIS B VACCINE (1 of 3 - 19+ 3-dose series) 12/20/1995 PAP SMEAR 1997 DEPRESSION SCREENING 08/01/2024 COVID-19 VACCINE (1 - 2024-2 6 season) 2025 INFLUENZA VACCINE (#1) 2025 ZOSTER VACCINE (1 of 2) 2026 [...] patient's age to complete this topic Insurance [place] [address] SELF PAY NO INSURANCE Member Subscriber Plan / Payer (Ef fective for All Dates) Name:Yessi Caban Member ID:Not on file Relation to Subscriber:Not on file Name:YESSI CABAN Subscriber ID:Not on file (Home) Address: [facility] [place] [address] Payer ID:Not on file Group ID:Not on file Type:Self Pay Address: [place], [place]
--- OUTSIDE RECORDS SUMMARY | 2025-07-03 10:10 | XMS_ITS | Clinical Summary ---
Author Organization [facility] Address [address] [place] [address] Care Team Providers Care Civil Engineering Drafter Name Role Phone Unavailable Primary Care Provider [...] HPV 2006 Mammogram Screening 2016 COVID-19 Vaccine (2024-2 6 season) 2025 Influenza Adult (#1) 2025 Hepatitis A Vaccines Aged Out No long er eligible based on patient's age to complete this topic Meningococcal B Vaccine Aged Out No l onger eligible based on patient's age to complete this topic Meningococcal Vaccine Aged Out No vijaya fidelina eligible based on patient's age to complete this topic Pneumococcal Vaccine: Pediat rics (0 to 5 Years) and At-Risk Patients (6 to 49 Years) Aged Out No longer eligible b ased on patient's age to complete this topic RSV Immunizations Under 20 Months Aged Out No longer eligible based on patient's age to complete this topic
== END 2025-07-03 09:21 | disposition home or self-care (01) ==
LOC: ANHFOHIMG 09:22
PROVIDERS: Visit Provider Nurse Practitioner Family
DX: Z12.31 Encounter for screening mammogram for malignant neoplasm of breast (principal)
CPT/HCPCS: 77063; 77067